=== PATIENT | male | born 1970 | race Caucasian/White ===

== ENCOUNTER 2020-06-13 11:06 | Outpatient (REF) | payer OTHER, SELFPAY ==
[2020-06-13 21:18] LABS: Calculated LDL 122 mg/dL (<100); Cholesterol 186 mg/dL (<200); HDL Cholesterol 53 mg/dL (40-60); Triglyceride 56 mg/dL (<150)
[2020-06-14 20:01] LABS: PSA, Screening 0.6 ng/mL (0.0-3.5)
== END 2020-06-13 11:26 ==
LOC: NCHCN 11:06
PROVIDERS: PCP Family Medicine; Visit Provider Internal Medicine
DX: Z00.00 Encounter for general adult medical examination without abnormal findings (principal)
CPT/HCPCS: 80061; 84153

== ENCOUNTER 2021-04-20 16:09 | Outpatient (REF) | payer OTHER, SELFPAY ==
[2021-04-21 22:37] LABS: COVID-19 RT-PCR UVMMC Result Positive (Negative)
== END 2021-04-20 16:10 | disposition home or self-care (01) ==
LOC: NCHCN 16:09
PROVIDERS: PCP Family Medicine; Visit Provider Nurse Practitioner Family
DX: Z20.822 Contact with and (suspected) exposure to COVID-19 (principal)
CPT/HCPCS: U0003